=== PATIENT | male | born 1950 | race Caucasian/White ===

== ENCOUNTER 2025-02-08 08:14 | Emergency (ER) | payer MEDICARE, SELFPAY ==
[2025-02-08 08:17] VITALS: BP 138/80; PULSE 71; TEMP 36.6; O2SAT 98; BMI 32.4
[2025-02-08] MEDS: OXYMETAZOLINE HCL 0.05% NASAL SPRAY 2 SPRAY NS (08:26)
--- NOTE | 2025-02-08 08:27 | ED_ITS ---
HPI HPI - General Adult General Chief complaint: Epistaxis Stated complaint: EPISTAXIS Time Seen by Provider: 02/08/25 08:15 Source: patient Mode of arrival: ambulance Limitations: no limitations History of Present Illness HPI narrative: Patient is a 74-year-old male presenting to the emergency department for evaluation of epistaxis. Patient states that 2 hours ago he blew his nose and s tarted having right-sided nosebleed. He tried direct pressure, which did not seem to help. He did not apply any medications. He is not on anticoagulation or antiplatelet medications. He denies history of trauma to his nose. Denies history of ENT procedures. He states he has had only 1 other nosebleed many months ago. He is otherwise asymptomatic without chest pain, shortness of breath, headache, nausea, or vomiting. Related Data Allergies Allergy/AdvReac Type Severity Reaction Status Date / Time No Known Drug Allergies Allergy Verified 02/08/25 08:21 Opioid HPI Opioid Management Most Recent Opioid Data: Last Pain Scale 0 Today, 08:17 Review of Systems ROS Status of ROS 10 or more systems reviewed and unremark able except as noted in history and below PFSH PFSH Social History Little interest or pleasure in doing things: not at all Feeling down, depressed, or hopeless: not at all Exam Narrative Exam Narrative: CONSTITUTIONAL: Well-appearing, answering questions and following commands appropriately SKIN: Was warm and dry. EYES: Sclerae white. No conjunctival pallor. EARS, NOSE, THROAT: There is dried blood surrounding the patient's nose. Upon anterior rhinoscopy, there is no active bleeding. Moist oral mucosa. No blood in the posterior oropharynx. RESPIRATORY: Clear to auscultation bilaterally, no wheezes, crackles, or stridor, no use of accessory muscles CARDIOVASCULAR: Normal rate and regular rhythm. There is no S3, S4, murmur, rub. GASTROINTESTINAL: Abdomen is nondistended. MUSCULOSKELETAL: No peripheral edema. NEUROLOGIC: Patient is awake and alert. Facies were symmetrical. Constitutional Vital Signs, click to edit/add: Last Vital Signs Temp 98 F 02/08/25 08:17 Pulse 71 02/08/25 08:17 Resp 20 02/08/25 08:17 BP 138/80 02/08/25 08:17 Pulse Ox 98 02/08/25 08:31 O2 Del Method Room Air 02/08/25 08:31 O2 Flow Rate 98 02/08/25 08:31 Course Vital Signs Vital signs: Vital Signs Temperature 98 F 02/08/25 08:17 Pulse Rate 71 02/08/25 08:17 Respiratory Rate 20 02/08/25 08:17 Blood Pressure 138/80 02/08/25 08:17 Pulse Oximetry 98 02/08/25 08:17 Temperature 98 F 02/08/25 08:17 Pulse Rate 71 02/08/25 08:17 Respiratory Rate 20 02/08/25 08:17 Blood Pressure 138/80 02/08/25 08:17 Pulse Oximetry 98 02/08/25 08:31 Oxygen Delivery Method Room Air 02/08/25 08:31 Oxygen Delivery Flow Rate 98 02/08/25 08:31 Medical Decision Making MDM Narrative Medical decision making narrative: Patient is a 74-year-old male presenting to the emergency department for evaluation of right-sided epistaxis x 2 hours. His vital signs on arrival are within normal limits. He is afebrile and hemodynamically stable, making significant acute blood loss anemia of low likelihood. Upon anterior rhinoscopy, there is no active bleeding. No concern for airway compromise. Oxymetazoline nasal spray was applied and the patient was monitored in the ED. On reevaluation after 1 hour, there has been no recurrence of his nosebleed. I do believe the patient is stable for discharge. Patient's presentation is most likely consistent with anterior epistaxis. They were instructed to follow up with his PCP as needed. Return precautions were given including any new or worsening symptoms. They were given oxymetazoline nasal spray to go home with. Patient understands and agrees to the plan. FINAL IMPRESSION: #Acute epistaxis, resolved DISPOSITION: Discharged home CONDITION: Good Discharge Plan Discharge Chief Complaint: Epistaxis Clinical Impression: Epistaxis Patient Disposition: Home, Self-Care Time of Disposition Decision: 08:51 Condition: Good Mode of Transportation: Private Vehicle Print Language: Wallisian Instructions: Nosebleed (ED) Additional Instructions: Follow up with PCP as needed Referrals: Physician,Non-Staff, MD [Primary Care Provider] - 1 week
[2025-02-08 08:31] VITALS: O2SAT 98
--- OUTSIDE RECORDS SUMMARY | 2025-02-08 08:51 | XMS_ITS | Clinical Summary ---
Author Organization [facility] Address [facility], [address] [place] [address] Care Team Providers Care Hand Funnel Coater Name Role Phone Unavailable Primary Care Provider Unavailabl e Social History Tobacco UseTypesPacks/DayYears UsedDateSmoking Tobacco: Never AssessedSex and Gender InformationValueDate RecordedSex Assigned at BirthNot on fileLegal Sex Male11/27/2017 7:53 AM EDTGender IdentityNot on fileSexual OrientationNot on file Plan of Treatment Not on file Insurance
--- OUTSIDE RECORDS SUMMARY | 2025-02-08 08:51 | XMS_ITS | Clinical Summary ---
Author Organization [facility] Address [address] [place] [address] Phone Care Team Providers Care Plumber'S Assistant Name Role Phone Unavailable Primary Care Provider Unavailabl e Social History Tobacco UseTypesPacks/DayYears UsedDateSmoking Tobacco: Never AssessedSex and Gender InformationValueDate RecordedSex Assigned at BirthNot on fileLegal Sex Male01/10/2022 1:17 PM ESTGender IdentityNot on fileSexual OrientationNot on file Plan of Treatment Not on file
--- OUTSIDE RECORDS SUMMARY | 2025-02-08 08:51 | XMS_ITS | Clinical Summary ---
Author Organization [facility] Healthcare Address [address] [place] [address] Care Team Providers Care Forestry Technical Officer Name Role Phone Joshua Pritchett MD Primary Care Provider [phone] Allergies No known active allergies Medications MedicationSigDispense QuantityRefillsLast FilledStart DateEnd DateStatus ARIPiprazole (Abilify) 5 MG tablet 11/20/2022ctive carvedilol (Coreg) 12.5 MG tablet 11/20/2022ctive FLUoxetine (PROzac) 20 MG capsule 1 capsule 1 (one) time each day at the same time.Active losartan (Cozaar) 25 MG tablet 1 (one) time each day at the same time.Active rosuvastatin (Crestor) 10 MG tablet 11/20/2022ctive Nitrostat 0.4 MG SL tablet as directed SublingualActive fluticasone (Flonase) 50 MCG/ACT nasal spray 06/11/2023ctive cyanocobalamin (Vitamin B-12) 1000 MCG tablet Take 1,000 mcg by mouth DailyActive Active Problems ProblemNoted DateDiagnosed DatePersonal history of colonic bfrvai1509/15/2023 Hyperplastic polyp of transverse colon09/15/2023cute xvzbkacvykp17/25/2024 Cardiac enzymes trielmqe20/25/9642Bgdekfke13/25/8206Tkvudhxnjc81/25/2024Elevated d-dimer08/11/2023Elevated AST (SGOT)08/11/2023Essential birgoxqioeay29/25/2024 Falls08/11/20233086Iuzelozsifwehv33/25/2024Mixed sgkratvuddfafi12/25/2024cute kidney pvlcaez0408/11/20230482Itwrtiqgynljgd27/25/2024Screening for colon cancer 08/11/20237101Zsdbsvrcrtaovhxu53/25/2024Vitamin B12 eseclffppb53/25/2024 Resolved Problems ProblemNoted DateDiagnosed DateResolved DateArthritis of glenohumeral joint Other specific arthropathies, not elsewhere classified, left giuzegyz37rthritis of right acromioclavicular joint01/14/2023 01/14/2023iverticulitis of large wbtsiovmu45Internal derangement of left cslxedmk05Other chronic pain01/14/2023 01/14/2023Right lower quadrant painUnspecified rotator cuff tear or rupture of left shoulder, not specified as lpeyakscu49 Immunizations ImmunizationAdministration DatesNext DueInfluenza, High-dose Seasonal, Quadrivalent, Preservative Free11/20/2022Influenza, Kyhrcefwwte33/05/2023, 12/08/2012Influenza, injectable, MDCK, chtszchjyscg69/10/2019Influenza, injectable, ysjohmsyrqlx41/30/2016,12/15/2013Influenza, injectable, quadrivalent, preservative free02/15/2016,03/13/2015Influenza, live, intranasal, ragigiekwops96/09/2018Pneumococcal Conjugate PCV 13002/24/2017Pneumococcal Polysaccharide ARNC1267/,02/15/20167825SPKJ-YKD-8 (COVID-19) vaccine, mRNA, spike protein, LNP, PF, brenda-sucrose, 30 mcg/0.3 mL11/24/2022Zoster, live 12/15/2013 Family History Medical HistoryRelationNameCommentsHeart failureFatherLarryEmphysemaMotherHelen Heart failureMotherHelenHypertensionMotherHelenRelationNameStatusCommentsFather LarryMotherHelen Social History Tobacco UseTypesPacks/DayYears UsedDateSmoking Tobacco: NeverSmokeless Tobacco: Never Tobacco Cessation:Counseling Given: Not Answered Alcohol UseStandard Drinks/WeekCommentsNot Currently0 (1 standard drink = 0.6 oz pure alcohol)Sex and Gender InformationValueDate RecordedSex Assigned at Not on fileLegal LaxKbex7504/30/2022 7:18 PM EDTGender IdentityNot on fileSexual OrientationNot on file Last Filed Vital Signs Vital SignReadingTime TakenCommentsBlood Chgabvdz44/70008/11/2023 9:17 AM EDT Pulse--Temperature--Respiratory Rate--Oxygen Saturation--Inhaled Oxygen Concentration--Hprvtf36.4 kg (186 lb)08/11/2023 9:17 AM MAOKaaxvc940.4 cm (5' 5.5 )08/11/2023 9:17 AM EDTBody Mass Index30.48008/11/2023 9:17 AM EDT Plan of Treatment Not on file Insurance Care Teams Team MemberRelationshipSpecialtyStart DateEnd Joshua Pritchett MD PCP - GeneralFamily Pmtewwjc24/20/23
== END 2025-02-08 09:55 | disposition home or self-care (01) ==
PROVIDERS: Emergency Provider Student in an Organized Health Care Education/Training Program; PCP Family Medicine
DX: R04.0 Epistaxis (principal)
CPT/HCPCS: 99283